=== PATIENT | male | born 1975 | race Caucasian/White ===

== ENCOUNTER 2019-12-30 07:11 | Emergency (ER) | payer OTHER ==
[~2019-12-30] VITALS: Ht 175.3 cm; Wt 90.7 kg
[2019-12-30] MEDS ORDERED: ADDERALL 10 MG10 MG PO (07:18)
[2019-12-30] MEDS ORDERED: SYNTHROID25 MC1 PO (07:18)
[2019-12-30] MEDS ORDERED: PREDNISONE 20 M20 M1 PO (08:04)
[2019-12-30] MEDS ORDERED: PEPCID20 MG PO (08:04)
[2019-12-30 08:52] VITALS: BP 131/82
== END 2019-12-30 08:53 | disposition home or self-care (01) ==
LOC: M.ERS 07:11
DX: L50.9 Urticaria, unspecified (principal); Z88.0 Allergy status to penicillin